=== PATIENT | female | born 1975 | race African-American/Black ===

== ENCOUNTER 2018-06-26 00:22 | Emergency (ER) | payer OTHER ==
[~2018-06-26] VITALS: Ht 154.9 cm; Wt 98.0 kg
== END 2018-06-26 01:51 | disposition home or self-care (01) ==
LOC: FSED 00:22
DX: K91.840 Postprocedural hemorrhage of a digestive system organ or structure following a digestive system procedure (principal); K08.89 Other specified disorders of teeth and supporting structures
CPT/HCPCS: 99283

== ENCOUNTER 2020-10-25 02:57 | Emergency (ER) | payer OTHER ==
[~2020-10-25] VITALS: Ht 154.9 cm; Wt 95.7 kg
[~2020-10-25 02:57] MED LIST: CARDIZEM CD180 MG PO; VENTOLIN HFA18 GM INH; VIT D PO
[2020-10-25] MEDS ORDERED: PREDNISONE50 MG PO (03:25)
[2020-10-25] MEDS ORDERED: ZANAFLEX4 MG PO (03:25)
[2020-10-25] MEDS ORDERED: ULTRAM 50MG50 MG PO (03:25)
[2020-10-25] MEDS ORDERED: ONDANSETRON HCL 4 MG ORAL DISINTEGRATING TAB ONE (03:27)
[2020-10-25] MEDS ORDERED: HYDROCODONE/APAP 5MG-325MG TAB ONE (03:28)
[2020-10-25] MEDS ORDERED: KETOROLAC TROMETHAMINE 60 MG/2 ML VIAL ONE (03:28)
[2020-10-25] MEDS ORDERED: PREDNISONE 20 MG TAB ONE (03:28)
[2020-10-25] MEDS ORDERED: KETOROLAC TROMETHAMINE 60 MG/2 ML VIAL IM ONE (03:30)
[2020-10-25] MEDS ORDERED: ONDANSETRON HCL 4 MG ORAL DISINTEGRATING TAB PO ONE (03:30)
[2020-10-25] MEDS ORDERED: PREDNISONE 20 MG TAB PO ONE (03:30)
[2020-10-25] MEDS ORDERED: HYDROCODONE/APAP 5MG-325MG TAB PO ONE (03:30)
== END 2020-10-25 03:45 | disposition home or self-care (01) ==
LOC: FSED 03:16
DX: M50.00 Cervical disc disorder with myelopathy, unspecified cervical region (principal); Z88.6 Allergy status to analgesic agent
CPT/HCPCS: 99283; J1885; J7512; Q0162

== ENCOUNTER 2020-10-30 21:29 | Emergency (ER) | payer OTHER ==
[~2020-10-30] VITALS: Ht 154.9 cm; Wt 101.6 kg
[~2020-10-30 21:29] MED LIST changes: +PREDNISONE50 MG PO; +ULTRAM 50MG50 MG PO; +ZANAFLEX4 MG PO
[2020-10-30] MEDS ORDERED: HYDROCODONE/APAP 5MG-325MG TAB PO STA (21:54)
[2020-10-30] MEDS ORDERED: PREDNISONE20 MG PO (22:03)
[2020-10-30] MEDS ORDERED: HYDROCODONE/APAP 5MG-325MG TAB ONE (22:11)
[2020-10-30 22:41] VITALS: BP 177/99
== END 2020-10-30 22:41 | disposition home or self-care (01) ==
LOC: FSED 21:44
DX: M54.12 Radiculopathy, cervical region (principal); I10 Essential (primary) hypertension
CPT/HCPCS: 99283

== ENCOUNTER 2022-05-28 09:22 | Emergency (ER) | payer OTHER ==
[~2022-05-28] VITALS: Ht 154.9 cm; Wt 99.3 kg
[~2022-05-28 09:22] MED LIST changes: +PREDNISONE20 MG PO
[2022-05-28] MEDS ORDERED: IBUPROFEN 600 MG TAB PO STA (10:00)
== END 2022-05-28 12:08 | disposition home or self-care (01) ==
LOC: FSED 09:36
DX: S90.212A Contusion of left great toe with damage to nail, initial encounter (principal); W22.8XXA Striking against or struck by other objects, initial encounter; Y93.89 Activity, other specified; Y92.019 Unspecified place in single-family (private) house as the place of occurrence of the external cause; Z90.49 Acquired absence of other specified parts of digestive tract; Z88.6 Allergy status to analgesic agent; Z88.5 Allergy status to narcotic agent
CPT/HCPCS: 99283

== ENCOUNTER 2024-06-29 17:54 | Emergency (ER) | payer SELFPAY ==
[~2024-06-29] VITALS: Ht 154.9 cm; Wt 99.3 kg
[2024-06-29 18:00] VITALS: PULSE 89; RESP 18; TEMP 98.6
[2024-06-29] MEDS ORDERED: KETOROLAC TROMETHAMINE 30 MG/ML VIAL IV STA (21:01)
[2024-06-29] MEDS ORDERED: CYCLOBENZAPRINE5 MG PO (21:06)
[2024-06-29 21:37] VITALS: BP 187/84; PULSE 78; RESP 18; TEMP 98.3; O2SAT 98
== END 2024-06-29 21:30 | disposition home or self-care (01) ==
LOC: FSED 18:24
DX: R10.30 Lower abdominal pain, unspecified (principal); S39.011A Strain of muscle, fascia and tendon of abdomen, initial encounter; I10 Essential (primary) hypertension
CPT/HCPCS: 74176; 99284; J1885